=== PATIENT | female | born 1980 ===

== ENCOUNTER 2022-07-24 18:41 | Inpatient (IN) | payer BC ==
[~2022-07-24] VITALS: Ht 170.2 cm; Wt 102.1 kg
[2022-07-24 20:00] VITALS: BP 152/103
[2022-07-24] MEDS ORDERED: Morphine 4mg INJECTION 4 MG/ML INJ IV PRN (20:00)
[2022-07-24] MEDS ORDERED: LACTATED RINGER'S 1,000 ML ONE (20:11)
[2022-07-24] MEDS ORDERED: Morphine 2mg Syringe 2 MG/ML SYR ONE (20:11)
[2022-07-24] MEDS: Morphine 4mg INJECTION 4 MG/ML INJ IV PRN (20:11)
[2022-07-24 20:37] VITALS: BP 152/103
[2022-07-24 20:46] LABS: BASOPHILS % 0.2 % (0.0-1.0); HEMATOCRIT 42.6 % (34.2-44.1); HEMOGLOBIN 14.3 g/dL (12.0-16.0); LYMPHOCYTES # (AUTO) 0.8 (1.0-3.2); LYMPHOCYTES % 4.8 % (18.0-39.1); MEAN CORPUSCULAR HEMOGLOBIN 31.8 pg (28-32); MEAN CORPUSCULAR HGB CONC 33.6 g/dL (31-35); MEAN CORPUSCULAR VOLUME 94.9 fL (81-99); MONOCYTES # (AUTO) 0.5 (0.2-0.8); MONOCYTES % 2.9 % (4.4-11.3); NEUTROPHILS # (AUTO) 14.9 (2.1-6.9); NEUTROPHILS % 91.8 % (38.7-80.0); PLATELET COUNT 296 x10e3/uL (140-360); RED BLOOD COUNT 4.49 x10e6/uL (3.6-5.1); RED CELL DISTRIBUTION WIDTH 12.9 % (11.7-14.4)
[2022-07-24 21:05] LABS: ALBUMIN/GLOBULIN RATIO 1.3 (0.8-2.0); ANION GAP 15.2 mmol/L (8-16); CALCIUM 8.8 mg/dL (8.4-10.2); CREATININE, SERUM 0.66 mg/dL (0.57-1.11); POTASSIUM 4.2 mmol/L (3.5-5.1)
[2022-07-24 21:17] LABS: MAGNESIUM 1.7 MG/DL (1.3-2.1)
[2022-07-24] MEDS: KETOROLAC TROMETHAMINE 30 MG/ML VIAL IM PRN (22:29)
[2022-07-24] MEDS: ONDANSETRON HCL INJ 2MG/ML 2ML 2 MG/ML VIAL IV PRN (22:29)
[2022-07-24] MEDS: LACTATED RINGER'S 1,000 ML INJ SCH (22:32)
[2022-07-24 23:44] VITALS: BP 128/82
[2022-07-25] VITALS (7 sets, daily range): BP systolic 143–158; BP diastolic 96–103
[2022-07-25] MEDS: LACTATED RINGER'S 1,000 ML INJ SCH ×6 (01:48→20:00)
[2022-07-25] MEDS: Morphine 4mg INJECTION 4 MG/ML INJ IV PRN ×7 (01:49→22:32)
[2022-07-25] MEDS: KETOROLAC TROMETHAMINE 30 MG/ML VIAL IM PRN ×3 (04:30→17:59)
[2022-07-25] MEDS: ONDANSETRON HCL INJ 2MG/ML 2ML 2 MG/ML VIAL IV PRN ×2 (04:30→10:36)
[2022-07-25 05:48] LABS: BASOPHILS % 0.1 % (0.0-1.0); EOSINOPHILS # (AUTO) 0.1 (0.0-0.4); EOSINOPHILS % 0.4 % (0.0-6.0); HEMATOCRIT 41.3 % (34.2-44.1); HEMOGLOBIN 13.8 g/dL (12.0-16.0); LYMPHOCYTES # (AUTO) 1.8 (1.0-3.2); LYMPHOCYTES % 12.6 % (18.0-39.1); MEAN CORPUSCULAR HGB CONC 33.4 g/dL (31-35); MEAN CORPUSCULAR VOLUME 95.8 fL (81-99); NEUTROPHILS # (AUTO) 11.3 (2.1-6.9); NEUTROPHILS % 79.5 % (38.7-80.0); PLATELET COUNT 267 x10e3/uL (140-360); RED BLOOD COUNT 4.31 x10e6/uL (3.6-5.1)
[2022-07-25 06:27] LABS: ALBUMIN 3.3 g/dL (3.5-5.0); ALBUMIN/GLOBULIN RATIO 1.3 (0.8-2.0); ANION GAP 14.2 mmol/L (8-16); CALCIUM 8.9 mg/dL (8.4-10.2); CREATININE, SERUM 0.72 mg/dL (0.57-1.11); MAGNESIUM 1.6 MG/DL (1.3-2.1); POTASSIUM 4.2 mmol/L (3.5-5.1)
[2022-07-25 06:28] LABS: CHOL/HDL RATIO 3.3 (3.0-3.6)
[2022-07-25] MEDS: HYDRALAZINE HCL 20 MG/ML VIAL IV PRN (10:28)
[2022-07-25] MEDS: ENOXAPARIN SOD INJ 40 MG/0.4 ML SYR SC SCH (18:00)
[2022-07-25] MEDS: ATORVASTATIN 20 MG TAB PO SCH (20:38)
[2022-07-26] VITALS (8 sets, daily range): BP systolic 106–156; BP diastolic 67–98
[2022-07-26] MEDS: KETOROLAC TROMETHAMINE 30 MG/ML VIAL IM PRN ×5 (00:59→23:22)
[2022-07-26] MEDS: LACTATED RINGER'S 1,000 ML INJ SCH ×9 (02:06→23:41)
[2022-07-26 05:34] LABS: BASOPHILS % 0.4 % (0.0-1.0); EOSINOPHILS # (AUTO) 0.2 (0.0-0.4); EOSINOPHILS % 1.9 % (0.0-6.0); HEMATOCRIT 38.5 % (34.2-44.1); HEMOGLOBIN 12.7 g/dL (12.0-16.0); LYMPHOCYTES # (AUTO) 1.6 (1.0-3.2); MEAN CORPUSCULAR HEMOGLOBIN 31.8 pg (28-32); MEAN CORPUSCULAR VOLUME 96.5 fL (81-99); MONOCYTES # (AUTO) 0.9 (0.2-0.8); MONOCYTES % 8.7 % (4.4-11.3); NEUTROPHILS # (AUTO) 7.9 (2.1-6.9); NEUTROPHILS % 73.5 % (38.7-80.0); PLATELET COUNT 256 x10e3/uL (140-360); RED BLOOD COUNT 3.99 x10e6/uL (3.6-5.1); RED CELL DISTRIBUTION WIDTH 13.1 % (11.7-14.4)
[2022-07-26 06:09] LABS: ALANINE AMINOTRANSFERASE 18 IU/L (0-55); ALBUMIN/GLOBULIN RATIO 1.1 (0.8-2.0); ALKALINE PHOSPHATASE 41 IU/L (40-150); AMYLASE 206 U/L (25-125); ANION GAP 13.3 mmol/L (8-16); BLOOD UREA NITROGEN < 5 mg/dL (7-26); CALCIUM 8.7 mg/dL (8.4-10.2); CARBON DIOXIDE 24 mmol/L (22-29); CHLORIDE 101 mmol/L (98-107); CREATININE, SERUM 0.59 mg/dL (0.57-1.11); GLUCOSE 90 mg/dL (74-118); LIPASE 919 U/L (8-78); MAGNESIUM 1.7 MG/DL (1.3-2.1); POTASSIUM 3.3 mmol/L (3.5-5.1); SODIUM 135 mmol/L (136-145)
[2022-07-26 06:19] LABS: BUN/CREATININE RATIO 8 (6-25)
[2022-07-26] MEDS: Morphine 4mg INJECTION 4 MG/ML INJ IV PRN ×3 (06:19→20:01)
[2022-07-26] MEDS ORDERED: LISINOPRIL 10 MG TAB PO SCH ×2 (09:00→16:00)
[2022-07-26] MEDS ORDERED: DULOXETINE HCL 30 MG DELAYED RELEASE PO SCH ×2 (09:00→15:00)
[2022-07-26] MEDS: POTASSIUM CHLORIDE 10MEQ/100ML 100 ML IV SCH ×2 (09:13→11:32)
[2022-07-26] MEDS ORDERED: LISINOPRIL10 MG PO (14:09)
[2022-07-26] MEDS ORDERED: CYMBALTA30 MG PO (14:09)
[2022-07-26] MEDS ORDERED: ATORVASTATIN CA20 MG PO (14:09)
[2022-07-26] MEDS: DULOXETINE HCL 30 MG DELAYED RELEASE PO SCH (15:47)
[2022-07-26] MEDS: LISINOPRIL 10 MG TAB PO SCH (15:48)
[2022-07-26] MEDS: ENOXAPARIN SOD INJ 40 MG/0.4 ML SYR SC SCH (17:17)
[2022-07-26] MEDS: ONDANSETRON HCL INJ 2MG/ML 2ML 2 MG/ML VIAL IV PRN (18:22)
[2022-07-26] MEDS: ATORVASTATIN 20 MG TAB PO SCH (19:57)
[2022-07-26] MEDS ORDERED: ATORVASTATIN 20 MG TAB PO SCH (21:00)
[2022-07-27] VITALS (11 sets, daily range): BP systolic 107–172; BP diastolic 70–105
[2022-07-27] MEDS: LACTATED RINGER'S 1,000 ML INJ SCH ×15 (00:31→20:50)
[2022-07-27] MEDS: MELATONIN 5 MG TABLET PO PRN ×2 (03:14→20:50)
[2022-07-27 05:48] LABS: BASOPHILS # (AUTO) 0.1 (0.0-0.1); BASOPHILS % 0.5 % (0.0-1.0); EOSINOPHILS # (AUTO) 0.4 (0.0-0.4); EOSINOPHILS % 3.6 % (0.0-6.0); HEMATOCRIT 37.3 % (34.2-44.1); HEMOGLOBIN 12.1 g/dL (12.0-16.0); LYMPHOCYTES # (AUTO) 1.8 (1.0-3.2); LYMPHOCYTES % 17.7 % (18.0-39.1); MEAN CORPUSCULAR HEMOGLOBIN 32.4 pg (28-32); MEAN CORPUSCULAR HGB CONC 32.4 g/dL (31-35); MEAN CORPUSCULAR VOLUME 99.7 fL (81-99); MONOCYTES # (AUTO) 0.9 (0.2-0.8); MONOCYTES % 9.1 % (4.4-11.3); NEUTROPHILS % 68.6 % (38.7-80.0); PLATELET COUNT 266 x10e3/uL (140-360); RED BLOOD COUNT 3.74 x10e6/uL (3.6-5.1); RED CELL DISTRIBUTION WIDTH 12.9 % (11.7-14.4)
[2022-07-27 06:06] LABS: ALANINE AMINOTRANSFERASE 14 IU/L (0-55); ALBUMIN 2.9 g/dL (3.5-5.0); ALKALINE PHOSPHATASE 39 IU/L (40-150); AMYLASE 86 U/L (25-125); ANION GAP 13.4 mmol/L (8-16); BLOOD UREA NITROGEN < 5 mg/dL (7-26); CALCIUM 8.8 mg/dL (8.4-10.2); CARBON DIOXIDE 25 mmol/L (22-29); CHLORIDE 102 mmol/L (98-107); CREATININE, SERUM 0.59 mg/dL (0.57-1.11); GLUCOSE 95 mg/dL (74-118); LIPASE 411 U/L (8-78); MAGNESIUM 1.8 MG/DL (1.3-2.1); POTASSIUM 3.4 mmol/L (3.5-5.1); SODIUM 137 mmol/L (136-145)
[2022-07-27 06:07] LABS: BUN/CREATININE RATIO 8 (6-25)
[2022-07-27] MEDS: DULOXETINE HCL 30 MG DELAYED RELEASE PO SCH (07:59)
[2022-07-27] MEDS: LISINOPRIL 10 MG TAB PO SCH (08:01)
[2022-07-27] MEDS ORDERED: POTASSIUM CHLORIDE 20 MEQ TAB CR PO ONE (08:30)
[2022-07-27] MEDS ORDERED: MAGNESIUM OXIDE 400 MG TAB PO ONE (08:30)
[2022-07-27] MEDS: KETOROLAC TROMETHAMINE 30 MG/ML VIAL IM PRN ×2 (08:48→15:10)
[2022-07-27] MEDS ORDERED: LISINOPRIL 10 MG TAB PO SCH (09:00)
[2022-07-27] MEDS: HYDRALAZINE HCL 20 MG/ML VIAL IV PRN ×2 (11:50→20:37)
[2022-07-27] MEDS ORDERED: KETOROLAC TROMETHAMINE 30 MG/ML VIAL IV PRN (17:00)
[2022-07-27] MEDS: ENOXAPARIN SOD INJ 40 MG/0.4 ML SYR SC SCH (17:11)
[2022-07-27] MEDS: ACETAMINOPHEN 325 MG TAB PO PRN ×2 (17:50→22:09)
[2022-07-27] MEDS ORDERED: BISACODYL 10 MG SUPP PR ONE (18:10)
[2022-07-27] MEDS: ATORVASTATIN 20 MG TAB PO SCH (20:38)
[2022-07-28] MEDS ORDERED: MELATONIN 5 MG TABLET PO ONE (00:45)
[2022-07-28 01:01] VITALS: BP 139/88
[2022-07-28] MEDS: LACTATED RINGER'S 1,000 ML INJ SCH (04:34)
[2022-07-28] MEDS: HYDRALAZINE HCL 20 MG/ML VIAL IV PRN (05:14)
[2022-07-28 05:20] VITALS: BP 147/100
[2022-07-28 06:01] LABS: BASOPHILS # (AUTO) 0.1 (0.0-0.1); BASOPHILS % 0.6 % (0.0-1.0); EOSINOPHILS # (AUTO) 0.2 (0.0-0.4); EOSINOPHILS % 2.5 % (0.0-6.0); HEMATOCRIT 37.6 % (34.2-44.1); HEMOGLOBIN 12.5 g/dL (12.0-16.0); LYMPHOCYTES # (AUTO) 1.4 (1.0-3.2); LYMPHOCYTES % 16.9 % (18.0-39.1); MEAN CORPUSCULAR HGB CONC 33.2 g/dL (31-35); MEAN CORPUSCULAR VOLUME 96.2 fL (81-99); MONOCYTES # (AUTO) 0.7 (0.2-0.8); MONOCYTES % 8.9 % (4.4-11.3); NEUTROPHILS # (AUTO) 5.7 (2.1-6.9); NEUTROPHILS % 70.9 % (38.7-80.0); PLATELET COUNT 274 x10e3/uL (140-360); RED BLOOD COUNT 3.91 x10e6/uL (3.6-5.1)
[2022-07-28 06:23] LABS: ALANINE AMINOTRANSFERASE 15 IU/L (0-55); ALBUMIN 3.2 g/dL (3.5-5.0); ALKALINE PHOSPHATASE 45 IU/L (40-150); ANION GAP 16.6 mmol/L (8-16); BLOOD UREA NITROGEN < 5 mg/dL (7-26); CALCIUM 9.3 mg/dL (8.4-10.2); CARBON DIOXIDE 22 mmol/L (22-29); CHLORIDE 103 mmol/L (98-107); GLUCOSE 100 mg/dL (74-118); MAGNESIUM 1.9 MG/DL (1.3-2.1); POTASSIUM 3.6 mmol/L (3.5-5.1); SODIUM 138 mmol/L (136-145)
[2022-07-28 06:25] LABS: BUN/CREATININE RATIO 8 (6-25)
[2022-07-28] MEDS: ACETAMINOPHEN 325 MG TAB PO PRN (07:22)
[2022-07-28 08:27] VITALS: BP 164/104
[2022-07-28 08:41] VITALS: BP 164/104
[2022-07-28] MEDS: DULOXETINE HCL 30 MG DELAYED RELEASE PO SCH (09:19)
[2022-07-28] MEDS ORDERED: LISINOPRIL 20 MG TAB PO SCH (10:00)
[2022-07-28 11:20] VITALS: BP 155/98
== END 2022-07-28 11:09 | disposition home or self-care (01) | DRG 440 ==
LOC: OR 18:41 → EDSTATUS 18:51 → MED/SURG2 18:52
PROVIDERS: ADMIT Internal Medicine; ATTEND Internal Medicine
DX: K85.20 Alcohol induced acute pancreatitis without necrosis or infection (principal); I10 Essential (primary) hypertension; E66.9 Obesity, unspecified; E78.2 Mixed hyperlipidemia; Z68.35 Body mass index [BMI] 35.0-35.9, adult; Z20.822 Contact with and (suspected) exposure to COVID-19
CPT/HCPCS: 36415; 76705; 80053; 80061; 82150; 83036; 83690; 83735; 84443; 85025; 96361; J1650; J1885; J2270; J2405; J3480